=== PATIENT | female | born 1985 | race Caucasian/White ===

== ENCOUNTER → 2023-11-26 09:15 | Outpatient (REF) | payer OTHER, SELFPAY | LOC: WDC 09:15 | PROVIDERS: ATTENDING PHYSICIAN Obstetrics & Gynecology Gynecology; FAMILY PHYSICIAN Physician Assistant Medical | DX: N63.10 Unspecified lump in the right breast, unspecified quadrant (principal); N63.20 Unspecified lump in the left breast, unspecified quadrant; N63.14 Unspecified lump in the right breast, lower inner quadrant; N63.24 Unspecified lump in the left breast, lower inner quadrant | CPT/HCPCS: 76642; 77062; 77066 ==

== ENCOUNTER → 2024-07-29 10:45 | Outpatient (REF) | payer OTHER, SELFPAY | LOC: HWRAD 10:45 | PROVIDERS: ATTENDING PHYSICIAN Otolaryngology; FAMILY PHYSICIAN Physician Assistant Medical | DX: R51.9 Headache, unspecified (principal); J32.2 Chronic ethmoidal sinusitis; J33.0 Polyp of nasal cavity | CPT/HCPCS: 70486 ==

== ENCOUNTER 2024-09-22 06:16 | Day surgery (SDC) | payer OTHER, SELFPAY ==
[2024-09-22] VITALS (7 sets, daily range): BP systolic 100–112; BP diastolic 62–79; BMI 25.6
[2024-09-22] MEDS: NORMOSOL-R/PLASMALYTE-A 1000 IV (08:24)
== END 2024-09-22 11:15 | disposition home or self-care (01) ==
LOC: SDS 06:16
PROVIDERS: ATTENDING PHYSICIAN Otolaryngology
DX: J32.9 Chronic sinusitis, unspecified (principal); J33.9 Nasal polyp, unspecified
CPT/HCPCS: 31257; 31267; 88311

== ENCOUNTER → 2025-04-20 13:58 | Outpatient (REF) | payer OTHER, SELFPAY | LOC: PAVMRI 13:58 | PROVIDERS: ATTENDING PHYSICIAN Nurse Practitioner Family; FAMILY PHYSICIAN Physician Assistant Medical | DX: R25.3 Fasciculation (principal); R53.1 Weakness; R29.810 Facial weakness | CPT/HCPCS: 70553; A9575 ==